=== PATIENT | female | born 1995 | race Caucasian/White ===

== ENCOUNTER → 2016-08-18 | Outpatient (CLI) | payer OTHER ==
[2016-08-18 11:51] LABS: BASO % 0.3 % (0.0-1.0); EOS # 0.1 K/mm3 (0.0-0.50); LARGE UNSTAINED CELL # 0.1 K/mm3 (0.0-0.4); LARGE UNSTAINED CELL % 1.3 % (0.0-4.0); LYMPH # 1.8 K/mm3 (1.5-6.5); LYMPH % 22.2 % (24.0-44.0); MEAN CORPUSCULAR HEMOGLOBIN 30.1 pg (27.0-33.0); MEAN CORPUSCULAR HGB CONC 31.9 g/dl (32.0-36.5); MEAN CORPUSCULAR VOLUME 94.3 fl (80.0-96.0); MONO # 0.4 K/mm3 (0.0-0.8); MONO % 4.6 % (0.0-5.0); NEUTROPHILS # 5.7 K/mm3 (1.8-7.7); NEUTROPHILS % 70.6 % (36.0-66.0); PLATELET COUNT, AUTOMATED 295 k/mm3 (150-450); RED CELL DISTRIBUTION WIDTH 11.9 % (11.5-14.5); WHITE BLOOD COUNT 8.1 K/mm3 (4.0-10.0)
[2016-08-18 12:07] LABS: FOLATE 4.6 NG/ML; VITAMIN B12 LEVEL 509 PG/ML
[2016-08-18 12:08] LABS: ALBUMIN/GLOBULIN RATIO 1.25 (1.00-1.93); ALKALINE PHOSPHATASE 70 U/L (45-117); ALT/SGPT 10 U/L (12-78); ANION GAP 8 MEQ/L (8-16); AST/SGOT 12 U/L (15-37); BILIRUBIN,TOTAL 0.3 MG/DL (0.2-1.0); BLOOD UREA NITROGEN 13 MG/DL (7-18); CALCIUM LEVEL 9.2 MG/DL (8.5-10.1); CARBON DIOXIDE LEVEL 28 MEQ/L (21-32); CHLORIDE LEVEL 108 MEQ/L (98-107); CHOLESTEROL LEVEL 168 MG/DL (<200); CREATININE FOR GFR 0.73 MG/DL (0.55-1.02); GLUCOSE, FASTING 64 MG/DL (70-105); POTASSIUM SERUM 4.5 MEQ/L (3.5-5.1); SODIUM LEVEL 144 MEQ/L (136-145); TOTAL PROTEIN 7.2 GM/DL (6.4-8.2); TRIGLYCERIDES LEVEL 69 MG/DL (<150)
== END ==
LOC: M LRY 08:40
PROVIDERS: ATTEND Emergency Medicine
DX: R63.4 Abnormal weight loss (principal); E55.9 Vitamin D deficiency, unspecified

== ENCOUNTER → 2016-10-06 | Outpatient (CLI) | payer OTHER ==
--- NOTE | 2016-10-06 11:32 | REP ---
Clinical: Left lower quadrant pain. Technique: Transabdominal examination with color Doppler evaluation of the ovaries. Findings: Bladder is under distended and measures 3.9 x 1.8 x 7.6 cm. Anteverted uterus measures 8.9 x 4.7 x 3.8 cm. Endometrial complex measures 14 mm thickness. No obvious uterine or endometrial abnormalities appreciated. No pelvic fluid. Right ovary is essentially normal in appearance and vascularity measuring 3.3 x 3.1 x 2.5 cm with 2.4 cm cyst / follicle. Right RI equal 0.56. Left ovary measures 9.1 x 5.5 x 7.5 cm with 6.6 cm cyst and is normal in vascularity. Left RI equal 0.62. Impression: Limited transabdominal examination due to incomplete bladder filling. Essentially normal appearance to the uterus and right ovary. 6.6 cm left ovarian cyst warrants followup examination in 4-6 weeks. Signed by Kirill Garcia MD 10/06/2016 11:25 A
== END ==
LOC: M LRY 08:54
PROVIDERS: ATTEND Nurse Practitioner Women's Health
DX: N83.202 Unspecified ovarian cyst, left side (principal)

== ENCOUNTER 2016-11-02 17:16 | Emergency (ER) | payer OTHER ==
[~2016-11-02] VITALS: Ht 167.6 cm; Wt 51.3 kg
[2016-11-02] MEDS ORDERED: PARO40TA2 PO (17:32)
[2016-11-02] MEDS ORDERED: ONDANSETRON 4MG/2ML VIAL (J2405) IV ONE (20:00)
[2016-11-02] MEDS ORDERED: MORPHINE 4 MG/ML 1ML SYRINGE IV ONE (20:00)
[2016-11-02 20:11] LABS: BASO % 0.5 % (0.0-1.0); EOS # 0.1 K/mm3 (0.0-0.50); EOS % 1.3 % (0.0-3.0); LARGE UNSTAINED CELL # 0.2 K/mm3 (0.0-0.4); LARGE UNSTAINED CELL % 1.7 % (0.0-4.0); LYMPH # 2.7 K/mm3 (1.5-6.5); LYMPH % 27.5 % (24.0-44.0); MEAN CORPUSCULAR HEMOGLOBIN 31.8 pg (27.0-33.0); MEAN CORPUSCULAR HGB CONC 34.7 g/dl (32.0-36.5); MEAN CORPUSCULAR VOLUME 91.8 fl (80.0-96.0); MONO # 0.5 K/mm3 (0.0-0.8); MONO % 5.6 % (0.0-5.0); NEUTROPHILS # 6.1 K/mm3 (1.8-7.7); NEUTROPHILS % 63.3 % (36.0-66.0); PLATELET COUNT, AUTOMATED 293 k/mm3 (150-450); RED CELL DISTRIBUTION WIDTH 11.5 % (11.5-14.5); WHITE BLOOD COUNT 9.6 K/mm3 (4.0-10.0)
--- NOTE | 2016-11-02 20:50 | REPUSA ---
CLINICAL STATEMENT: Rule out torsion and left ovary and cyst TECHNIQUE: A sonogram of the pelvis was performed utilizing transabdominal approach assessing tay-sc michela appearance and color Doppler flow. Transvaginal technique was not employed due to patient being c urrently sexually active. COMPARISON: None FINDINGS: Uterus: Anteverted measuring 7.9 x 3.0 x 4.0 cm without masses. Endometrium: 5.5 mm in thickness (normal up to 3mm in postmenopausal women). No mass or increased vas cularity. Cervix: Normal Right ovary: Measures 3.7 x 2.0 x 1.9 cm and unremarkable. Left ovary: Measures 3.6 x 2.0 x 2.7 cm and unremarkable. In the left adnexa there is a 6.3 x 4.9 x 6 .1 cm anechoic cyst with smooth margins, without interval septation, nodules, or vascularity. Both ovaries demonstrate arterial/venous flow. IMPRESSION: No evidence of ovarian torsion at this time. 6.3 cm simple appearing left para ovarian cyst. FOLLOW-UP OF ASYMPTOMATIC OVARIAN CYSTS (Javier E et al. Radiology 2010;[id number]) Simple cyst <1 cm: No follow up. Simple cyst 1-5 cm: No follow up pre-menopausal. Yearly follow up postmenopausal. Simple cyst 5-7 cm: Yearly follow up. Simple cyst > 7 cm: MRI or surgical evaluation. Corpus luteum cyst (diffusely thick wall, peripheral flow, < 3 cm): No follow up. Complex cyst suggestive of hemorrhagic cyst, endometrioma or dermoid: 6-12 week follow up premenopaus al. Consider surgical evaluation postmenopausal. Single thin septation: Treat as simple cyst. Multiple thin septations: Consider surgical evaluation. Nodule without flow: Consider MRI or surgical evaluation. Nodule with flow: Consider surgical evaluation. Thick (> 3 mm) irregular septations: Consider surgical evaluation. Thank you for this kind referral of this patient.
[2016-11-02 20:56] LABS: ANION GAP 5 MEQ/L (8-16); BLOOD UREA NITROGEN 4 MG/DL (7-18); CALCIUM LEVEL 9.3 MG/DL (8.5-10.1); CARBON DIOXIDE LEVEL 31 MEQ/L (21-32); CHLORIDE LEVEL 103 MEQ/L (98-107); CREATININE FOR GFR 0.63 MG/DL (0.55-1.02); GLUCOSE, FASTING 94 MG/DL (70-105); HCG, SERUM QUANTITATIVE < 1.0 MIU/ML; POTASSIUM SERUM 3.6 MEQ/L (3.5-5.1); SODIUM LEVEL 139 MEQ/L (136-145)
--- NOTE | 2016-11-02 21:08 | ED PDOC ---
Post-Departure Follow-Up DISCUSSED CASE WITH DR. JAMES AT THIS TIME. ADVISED THEY DO NOT PRESCRIBED NARCOTICS FOR OVARIAN CYSTS AT THEIR PRACTICE. ADVISED PT HAS A F/U APPT WITH [facility] NEXT WEEK AT THEIR PRACTICE. ADVISED DID NOT WANT TO DRAIN THIS AT THIS TIME THAT CAN SCAR AND POTENTIALLY CAUSE INFERTILITY. PINKY WALLACE PA-C Nov 02, 2016 21:08
[2016-11-02] MEDS ORDERED: MORPHINE 2 MG/ML 1ML SYRINGE IV ONE (21:15)
[2016-11-02] MEDS ORDERED: NORCOTAB PO (21:50)
[2016-11-02] MEDS ORDERED: NORCO 5/325MG TABLET (BULK FOR ED) PO ONE (22:00)
[2016-11-02 22:07] VITALS: BP 125/70
== END 2016-11-02 22:07 | disposition home or self-care (01) ==
LOC: M ED 19:21
DX: N83.292 Other ovarian cyst, left side (principal); Z79.899 Other long term (current) drug therapy
CPT/HCPCS: 76856; 80048; 81001; 84702; 85025; 93976; 96374; 96375; 99282; J2405

== ENCOUNTER → 2017-07-19 | Outpatient (CLI) | payer OTHER ==
[~2017-07-19] MED LIST: METHACHOLINE KIT (J7674) INH
== END ==
LOC: M CARPUL 08:47
DX: R06.02 Shortness of breath (principal)
CPT/HCPCS: J7674